=== PATIENT | female | born 1965 | race Caucasian/White ===

== ENCOUNTER 2018-05-22 10:35 | Emergency (ER) | payer MEDICAID ==
[~2018-05-22] VITALS: Ht 160 cm; Wt 79.4 kg
[2018-05-22 10:42] VITALS: BP 142/73
--- NOTE | 2018-05-22 10:57 | NUR ---
WITNESSED MECHANICAL FALL TODAY HEAD INJURY TO RIGHT PARIETAL, OCCIPITAL HEMATOMA ABRASION TO REGION---DENIES KO, NO EMESIS-- HX---SEVERE INTELLECTUAL DISABILITY, BLIND, SEIZURE, HYPOTHYROID RX---ESOMEPRA, GAVILAX, LEVOTHYROXINE, CRYSELLE, DEPAKOTE, CLARITIN, RISPERDAL, ATIVAN, ROBINUL, DEBROX, TIMOLOL, DULCOLAX
--- NOTE | 2018-05-22 11:52 | NUR ---
PT TO CT VIA WHEELCHAIR
[2018-05-22 12:57] VITALS: BP 142/73
--- NOTE | 2018-05-22 12:59 | NUR ---
Patient discharged with v/s stable. Written and verbal after care instructions given and explained. Patient verbalized understanding. Ambulatory with steady gait. All questions addressed prior to discharge. Advised to follow up with PMD.
== END 2018-05-22 12:57 | disposition home or self-care (01) ==
LOC: MED 10:35
DX: S00.03XA Contusion of scalp, initial encounter (principal); H54.7 Unspecified visual loss; Z88.8 Allergy status to other drugs, medicaments and biological substances; W18.39XA Other fall on same level, initial encounter; Y93.01 Activity, walking, marching and hiking; Y92.89 Other specified places as the place of occurrence of the external cause; Y99.8 Other external cause status
CPT/HCPCS: 70450; 99284